=== PATIENT | male | born 1980 | race Asian ===

== ENCOUNTER 2023-09-24 08:33 | Day surgery (SDC) | payer BC ==
[~2023-09-24] VITALS: Ht 168.9 cm; Wt 76.3 kg
[~2023-09-24 08:33] MED LIST: LR 1,000 ML IV SCH; Ondansetron 4 MG/2 ML VIAL IV PRN
[2023-09-24] MEDS ORDERED: Glycopyrrolate 0.2 MG/ML 1 ML VIAL ONE (08:53)
[2023-09-24] MEDS ORDERED: Lidocaine PF 2% (20 MG/ML) 5 ML VIAL ONE (08:53)
[2023-09-24 09:11] VITALS: BP 121/84; PULSE 88; TEMP 97.2
--- NOTE | 2023-09-24 09:16 | NUR ---
Pt ambulates to [facility] with steady gait. Alert, oriented x4. Questions answered. VSS, see flowsheet. Pt reports that prep has been effective. Allergies, pharmacy, and medications confirmed. 20G IV inserted into the right hand, LR infusing without complications. brought to bedside. Pt oriented to room and call light system. Resting in recliner chair with feet elevated.
[2023-09-24 10:20] VITALS: BP 110/84; PULSE 92; TEMP 97
--- NOTE | 2023-09-24 10:20 | NUR ---
PATIENT AMBULATED TO CHAIR WITH STEADY GAIT, ASSIST OF 2. ALERT AND AWAKE. DENIES PAIN, NAUSEA AND SHORTNESS OF BREATH. BREATHING REGULAR AND UNLABORED ON ROOM AIR. SKIN WARM AND DRY. IV IN PLACE. NURSE HANDOFF COMPLETED IN ROOM. SEE CHART FOR VITAL SIGNS. PATIENT HAD APPLE JUICE AND A MUFFIN. BOTH FOOD AND DRINK TOLERATED WELL, NO DYSPHAGIA. CALL LIGHT IN REACH. SPOUSE PRESENT IN ROOM.
[2023-09-24 10:30] VITALS: BP 114/86; PULSE 89
[2023-09-24 10:45] VITALS: BP 115/75; PULSE 89
--- NOTE | 2023-09-24 10:58 | NUR ---
[id number]: MET WITH PATIENT AND SPOUSE IN ROOM TO DISCUSS PROCEDURE AND ANSWER QUESTIONS. 1052: DISCHARGE TEACHING COMPLETED WITH PRINTED EDUCATION AND INSTRUCTIONS SENT HOME WITH PATIENT. PATIENT AND SPOUSE VERBALIZED UNDERSTANDING OF TEACHING. 1053: IV REMOVED. GAUZE AND COBAN PLACED OVER SITE. 1058: PATIENT DISCHARGED HOME WITH SPOUSE TRANSPORT.
== END 2023-09-24 10:58 | disposition home or self-care (01) ==
LOC: SDCO 08:33
DX: K62.0 Anal polyp (principal); K57.30 Diverticulosis of large intestine without perforation or abscess without bleeding; K62.89 Other specified diseases of anus and rectum
CPT/HCPCS: J2704; J7120

== ENCOUNTER 2023-10-31 12:31 | Day surgery (SDC) | payer BC ==
[~2023-10-31] VITALS: Ht 167.6 cm; Wt 77.1 kg
[~2023-10-31 12:31] MED LIST changes: -Ondansetron 4 MG/2 ML VIAL IV PRN
[2023-10-31 13:26] VITALS: BP 147/79; PULSE 75; TEMP 98.2
[2023-10-31] MEDS ORDERED: TYLENOL 500MG500 MG PO (13:29)
[2023-10-31] MEDS ORDERED: Lidocaine PF 2% (20 MG/ML) 5 ML VIAL ONE (15:51)
[2023-10-31] MEDS ORDERED: Ondansetron 4 MG/2 ML VIAL ONE (15:51)
[2023-10-31] MEDS ORDERED: NORCO 325 MG-51 TAB PO (15:52)
[2023-10-31] MEDS ORDERED: MOTRIN 600600 MG/TAB PO (15:52)
[2023-10-31 16:36] VITALS: TEMP 98.1
[2023-10-31 16:55] VITALS: BP 120/79; PULSE 72
[2023-10-31 16:56] VITALS: BP 120/79; PULSE 72
--- NOTE | 2023-10-31 17:09 | NUR ---
1655- REPORT RECIEVED FROM [employer] ENGINEER. PATIENT BACK TO ROOM 7. NO COMPLAINTS OF NAUSEA OR PAIN. VS OBTAINED. REQUESTING WATER AND PUDDING. 1657- TOLERATING WATER AND FOOD. IV REMOVED PER ORDERS. 1703- DISCHARGE INSTRUCTIONS DONE WITH PATIENT AND SPOUSE. ANSWERED ALL QUESTIONS IN FULL. 1713- PT DISCHARGED FROM HOSPITAL VIA WHEELCHAIR TO PRIVATE VEHICLE DRIVEN BY SPOUSE.
== END 2023-10-31 17:14 ==
LOC: SDCO 12:31
DX: K64.1 Second degree hemorrhoids (principal); D12.9 Benign neoplasm of anus and anal canal; K62.0 Anal polyp; L91.8 Other hypertrophic disorders of the skin
CPT/HCPCS: J2405; J2704; J7120